=== PATIENT | male | born 1960 | race Caucasian/White ===

== ENCOUNTER 2020-12-03 00:40 | Emergency (ER) | payer OTHER ==
[~2020-12-03] VITALS: Ht 175.3 cm; Wt 99.3 kg
[~2020-12-03 00:40] MED LIST: LEVO175T2 PO
[2020-12-03 00:46] VITALS: BP 130/70
--- NOTE | 2020-12-03 01:23 | NUR ---
RAD AT BEDSIDE
[2020-12-03] MEDS ORDERED: AZIT250T13 PO (01:31)
== END 2020-12-03 01:41 | disposition home or self-care (01) ==
LOC: ER 00:41
DX: U07.1 COVID-19 (principal); I10 Essential (primary) hypertension; E03.9 Hypothyroidism, unspecified; Z98.890 Other specified postprocedural states; Z79.899 Other long term (current) drug therapy
CPT/HCPCS: 71045-TC